=== PATIENT | female | born 1940 | race Caucasian/White ===

== ENCOUNTER 2017-10-29 15:38 | Emergency (ER) | payer OTHER, BC ==
[~2017-10-29] VITALS: Ht 160 cm; Wt 90.9 kg
[2017-10-29] MEDS ORDERED: LISINOPRIL-HCT1 EAC3 PO (16:58)
[2017-10-29] MEDS ORDERED: SIMVASTATIN40 MG PO (16:58)
[2017-10-29] MEDS ORDERED: LEVOTHYROXINE25 MCG PO (16:58)
[2017-10-29] MEDS ORDERED: VITAMIN D31000 UNIT PO (16:59)
[2017-10-29] MEDS ORDERED: VITAMIN C500 M6 PO (16:59)
[2017-10-29] MEDS ORDERED: ASPIR 8181 M1 PO (16:59)
[2017-10-29 17:00] LABS: HEMATOCRIT 50.6 % (36.0-46.0); HEMOGLOBIN 16.2 G/DL (11.9-15.5); MCV 90.7 FL (83-99); PLATELET COUNT 130 K/uL (156-360); RBC DIS.WIDTH-CV 13.7 % (11.8-14.6); RBC DIS.WIDTH-SD 45.9 % (39-53); RED BLOOD COUNT 5.58 M/uL (3.80-5.20); WHITE BLOOD COUNT 6.1 K/uL (4.1-10.2)
[2017-10-29] MEDS ORDERED: COSOPT EYE DROP10 ML LEFT EYE (17:00)
[2017-10-29] MEDS ORDERED: ZITHROMAX250 MG PO (17:01)
[2017-10-29] MEDS ORDERED: VENTOLIN HFA18 GM IH (17:01)
[2017-10-29] MEDS ORDERED: PREDNISONE20 MG PO (17:01)
[2017-10-29 17:07] LABS: CHLORIDE 106 mEq/L (99-109); POTASSIUM 3.4 mEq/L (3.7-5.4); SODIUM 140 mEq/L (136-147)
[2017-10-29 17:09] LABS: GLUCOSE 88 mg/dL (70-99)
[2017-10-29 17:13] LABS: CREATININE 1.1 mg/dL (0.6-1.3); GFR ESTIMATE (CALCULATED) 51 mL/min/
[2017-10-29 17:14] LABS: UREA NITROGEN (BUN) 25 mg/dL (9-23)
[2017-10-29 17:21] LABS: TROP-I INTERPRETATION NEGATIVE; TROPONIN-I 0.05 ng/mL (0.0-0.30)
[2017-10-29 17:38] VITALS: BP 154/99
== END 2017-10-29 17:51 | disposition home or self-care (01) ==
LOC: EME 15:38
PROVIDERS: Nurse Practitioner Family
DX: J40 Bronchitis, not specified as acute or chronic (principal); J06.9 Acute upper respiratory infection, unspecified; E78.5 Hyperlipidemia, unspecified; I10 Essential (primary) hypertension; Z86.73 Personal history of transient ischemic attack (TIA), and cerebral infarction without residual deficits; E03.9 Hypothyroidism, unspecified
CPT/HCPCS: 71046; 80048; 84484; 85027; 87040; 87077; 87186; 87801; 94640; 99281; 99285; J2930; J7030